=== PATIENT | male | born 1970 | race Caucasian/White ===

== ENCOUNTER 2020-12-19 18:11 | Inpatient (IN) | payer MEDICAID ==
[~2020-12-19] VITALS: Ht 188 cm; Wt 107.5 kg
[~2020-12-19 18:11] MED LIST: ALBUMIN HUMAN 25GM/100ML (25%) IV ONE; AMINOCAPROIC ACID 250 MG/ML 20ML VIAL ONE; CALCIUM CHLORIDE 1GM/10ML SYR IV ONE; HEPARIN 10,000 UNITS/ML VIAL ONE; HEPARIN 1000 UNITS/ML 10ML ONE; LIDOCAINE HCL 2% 5ML SYRINGE IV ONE; MAGNESIUM SULFATE 5GM/10ML VIAL IV ONE; MANNITOL 20% (20GM/100ML) BAG 500ML PREMIX IV ONE; PHENYLEPHRINE HCL 10 MG/ML 1ML (IV VIAL) IV ONE; POTASSIUM CHLORIDE 40MEQ/20ML INJ IV ONE; SODIUM BICARBONATE 8.4% 1 MEQ/ML 50ML SYR IV ONE
[2020-12-19] MEDS ORDERED: NICARDIPINE 100 MG in SODIUM CHLORIDE 0.9% 60 ML IV STA (18:22)
[2020-12-19 18:33] LABS: BASOPHILS % 0.6 % (0.0-2.0); EOSINOPHILS % 0.2 % (0.0-5.0); HEMOGLOBIN. 14.7 g/dL (14.0-18.0); LYMPHOCYTES % 7.8 % (20.0-50.0); MEAN CORPUSCULAR HEMOGLOBIN 30.6 pg (28.0-32.0); MEAN CORPUSCULAR VOLUME 91.3 fL (80.0-94.0); MEAN PLATELET VOLUME 7.5 fl (7.4-10.4); MONOCYTES % 8.5 % (2.0-8.0); NEUTROPHILS % 82.9 % (40.0-76.0); PLATELET 217 x1000/uL (130-400); RED BLOOD CELL COUNT 4.82 mill/uL (4.7-6.1); RED CELL DISTRIBUTION WIDTH 13.8 % (11.6-14.6)
[2020-12-19] MEDS ORDERED: ROCURONIUM BROMIDE 10MG/ML VIAL 5ML IV ONE ×2 (19:01→20:55)
[2020-12-19] MEDS ORDERED: HYDROMORPHONE HCL/PF 2MG/ML (OR) ONE (19:01)
[2020-12-19] MEDS ORDERED: DEXAMETHASONE 4MG/ML 1ML VIAL ONE (19:02)
[2020-12-19] MEDS ORDERED: PROPOFOL 200MG/20ML VIAL IV ONE (19:20)
[2020-12-19] MEDS ORDERED: AMINOCAPROIC ACID 5,000 MG in SODIUM CHLORIDE 0.9% 230 ML IV ONE (19:45)
[2020-12-19] MEDS ORDERED: DEL NIDO ELECTROLYTE-S(PH 7.4) 1,000 ML IV SCH ×2 (20:30)
[2020-12-19] MEDS ORDERED: AMINOCAPROIC ACID 250 MG/ML 20ML VIAL ONE (20:55)
[2020-12-19] MEDS ORDERED: HEPARIN 1000 UNITS/ML 10ML ONE (20:55)
[2020-12-19] MEDS ORDERED: CHLORHEXIDINE GLUCONATE 4% EXTERNAL USE TOP SCH (21:00)
[2020-12-19] MEDS ORDERED: CALCIUM CHLORIDE 1GM/10ML SYR IV ONE ×3 (21:11→22:40)
[2020-12-19] MEDS ORDERED: PROTAMINE SULFATE 10MG/ML VIAL 25ML IV ONE ×2 (21:15→21:55)
[2020-12-19] MEDS ORDERED: THROMBIN (BOVINE) 5000 UNITS/VIAL TOP ONE (21:53)
[2020-12-19] MEDS ORDERED: KETOROLAC 30MG/ML VIAL ONE (22:08)
[2020-12-19] MEDS ORDERED: SODIUM BICARBONATE 8.4% 1 MEQ/ML 50ML SYR IV ONE (22:19)
[2020-12-19] MEDS ORDERED: FUROSEMIDE 100MG/10ML VIAL ONE (22:25)
[2020-12-19] MEDS ORDERED: EPINEPHRINE 0.1MG/ML (1:10,000) 10ML SYR ONE (22:39)
[2020-12-19] MEDS ORDERED: GLYCOPYRROLATE 0.2 MG/ML 2ML VIAL ONE (22:44)
[2020-12-19] MEDS ORDERED: NEOSTIGMINE METHYLSULFATE 1MG/ML 10 ML VIAL ONE (22:44)
[2020-12-19] MEDS ORDERED: KETOROLAC 30MG/ML VIAL IV PRN (23:15)
[2020-12-19] MEDS ORDERED: ALBUMIN HUMAN 25GM/100ML (25%) IV PRN (23:15)
[2020-12-19] MEDS ORDERED: ACETAMINOPHEN 325MG TABLET PO PRN (23:15)
[2020-12-19] MEDS: MAGNESIUM HYDROXIDE 400MG/5ML 30ML UDC PO SCH (23:15)
[2020-12-19] MEDS ORDERED: MORPHINE SULFATE 2 MG/ML CPJ (NOT FOR IM USE) IV PRN (23:15)
[2020-12-19] MEDS ORDERED: ONDANSETRON HCL 4MG/2ML INJ IV PRN (23:15)
[2020-12-19] MEDS ORDERED: MAGNESIUM 1 G PREMIX 100 ML IV PRN (23:15)
[2020-12-19] MEDS ORDERED: NITROGLYCERIN 50MG PREMIX 250 ML IV SCH (23:15)
[2020-12-19] MEDS ORDERED: OXYCODONE HCL/ACETAMINOPHEN 5/325MG TABLET PO PRN ×2 (23:15)
[2020-12-19] MEDS ORDERED: ALBUMIN HUMAN 12.5G/250ML (5%) IV PRN (23:15)
[2020-12-19] MEDS ORDERED: DOPAMINE 400MG/250ML PREMIX 250 ML IV SCH (23:15)
[2020-12-19 23:25] VITALS: BP 146/72
[2020-12-19 23:26] LABS: BG BASE EXCESS -4.9 mmol/L (-2.0-2.0); BG CARBOXYHEMOGLOBIN 1.5 % (0.5-1.5); BG DEOXYHEMOGLOBIN 12.4 % (0.0-5.0); BG FRACTION INSPIRED OXYGEN 100; BG HCO3 ACT 21.9 mmol/L (22.0-26.0); BG METHEMOGLOBIN 0.4 % (0.0-1.5); BG OXYGEN SATURATION 87.4 % (92.0-98.5); BG OXYHEMOGLOBIN 85.7 % (94.0-97.0); BG PH 7.286 (7.350-7.450); BG PO2 58.1 mmHg (75.0-100.0); BG SAMPLE SITE ALINE; BG TOTAL HEMOGLOBIN 14.7 g/dL (12.0-18.0); BG VENT MODE MASK - NRB
[2020-12-19] MEDS ORDERED: KCL 10MEQ/50ML PREMIX 150 ML IV PRN (23:30)
[2020-12-19] MEDS ORDERED: KCL 10MEQ/50ML PREMIX 200 ML IV PRN (23:30)
[2020-12-19] MEDS ORDERED: SODIUM BICARBONATE 8.4% 1 MEQ/ML 50ML SYR IV SCH (23:30)
[2020-12-19] MEDS ORDERED: NALOXONE HCL 0.4 MG/ML 1ML VIAL IV PRN (23:30)
[2020-12-19] MEDS: INSULIN REGULAR (DRIP) 100 UNITS in SODIUM CHLORIDE 0.9% 100 ML IV SCH (23:30)
[2020-12-19 23:40] LABS: HEMATOCRIT. 40.4 % (42.0-52.0); HEMOGLOBIN. 13.5 g/dL (14.0-18.0); MEAN CORPUSCULAR HEMOGLOBIN 30.4 pg (28.0-32.0); MEAN CORPUSCULAR VOLUME 91.1 fL (80.0-94.0); MEAN PLATELET VOLUME 7.8 fl (7.4-10.4); PLATELET 172 x1000/uL (130-400); RED BLOOD CELL COUNT 4.44 mill/uL (4.7-6.1); RED CELL DISTRIBUTION WIDTH 13.9 % (11.6-14.6)
[2020-12-19] MEDS ORDERED: INSULIN REGULAR (DRIP) 100 UNITS in SODIUM CHLORIDE 0.9% 99 ML IV PRN (23:45)
[2020-12-19] MEDS ORDERED: DEXTROSE 50% WATER 50ML SYRINGE IV PRN ×2 (23:45)
[2020-12-20] VITALS (100 sets, daily range): BP systolic 101–176; BP diastolic 15–79
[2020-12-20] MEDS ORDERED: CEFAZOLIN 1000MG PREMIX 50 ML IV SCH
[2020-12-20] MEDS ORDERED: CALCIUM CHLORIDE 3,000 MG in DEXT 5% WATER 250 ML IV PRN
[2020-12-20] MEDS ORDERED: MAGNESIUM SULFATE 3 GM in DEXT 5% WATER 100 ML IV PRN
[2020-12-20] MEDS ORDERED: CALCIUM CHLORIDE 5,000 MG in DEXT 5% WATER 500 ML IV PRN
[2020-12-20] MEDS: IPRATROPIUM/ALBUTEROL 0.5-3(2.5)MG/3ML NEB HHN SCH ×6 (00:43→21:07)
[2020-12-20] MEDS: NICARDIPINE 50 MG in SODIUM CHLORIDE 0.9% 230 ML IV PRN ×2 (01:00→02:20)
[2020-12-20] MEDS: BLOOD SUGAR DIAGNOSTIC STRIP TEST SCH ×24 (01:00→23:00)
[2020-12-20] MEDS: DEXT 5%/0.45% NACL 1000ML 1,000 ML IV SCH (01:02)
[2020-12-20 01:03] LABS: BG BASE EXCESS -1.6 mmol/L (-2.0-2.0); BG CARBOXYHEMOGLOBIN 0.8 % (0.5-1.5); BG FRACTION INSPIRED OXYGEN 100; BG HCO3 ACT 25.1 mmol/L (22.0-26.0); BG METHEMOGLOBIN 0.3 % (0.0-1.5); BG OXYGEN SATURATION 88.9 % (92.0-98.5); BG OXYHEMOGLOBIN 87.9 % (94.0-97.0); BG PCO2 50.1 mmHg (35.0-45.0); BG PH 7.317 (7.350-7.450); BG PO2 59.3 mmHg (75.0-100.0); BG SAMPLE SITE ALINE; BG TOTAL HEMOGLOBIN 13.9 g/dL (12.0-18.0); BG VENT MODE MASK - NRB
[2020-12-20] MEDS ORDERED: AMINOCAPROIC ACID IV ONE (01:30)
[2020-12-20 02:07] LABS: PLATELET ESTIMATE NORMAL
[2020-12-20] MEDS: AMINOCAPROIC ACID 5,000 MG in SODIUM CHLORIDE 0.9% 230 ML IV SCH ×2 (02:36→07:00)
[2020-12-20 05:04] LABS: HEMATOCRIT. 38.1 % (42.0-52.0); HEMOGLOBIN. 12.9 g/dL (14.0-18.0); MEAN CORPUSCULAR HEMOGLOBIN 30.7 pg (28.0-32.0); MEAN CORPUSCULAR VOLUME 90.9 fL (80.0-94.0); MEAN PLATELET VOLUME 8.1 fl (7.4-10.4); PLATELET 172 x1000/uL (130-400); RED BLOOD CELL COUNT 4.19 mill/uL (4.7-6.1); RED CELL DISTRIBUTION WIDTH 13.9 % (11.6-14.6)
[2020-12-20 05:41] LABS: *AMPHETAMINES SCREEN URINE PRESUMTIVE POSITIVE (NEGATIVE); *BARBITURATES SCREEN URINE NEGATIVE (NEGATIVE); *BENZODIAZEPINES SCREEN URINE NEGATIVE (NEGATIVE); *COCAINE SCREEN URINE NEGATIVE (NEGATIVE)
[2020-12-20 05:42] LABS: CANNABINOID URINE SCREEN NEGATIVE (NEGATIVE); METHADONE URINE SCREEN NEGATIVE (NEGATIVE); OPIATES URINE SCREEN PRESUMTIVE POSITIVE (NEGATIVE); PHENCYCLIDINE URINE SCREEN NEGATIVE (NEGATIVE)
[2020-12-20 05:48] LABS: PLATELET ESTIMATE NORMAL
[2020-12-20] MEDS: MAGNESIUM HYDROXIDE 400MG/5ML 30ML UDC PO SCH ×4 (07:18→23:12)
[2020-12-20] MEDS ORDERED: CHLORHEXIDINE GLUCONATE 4% EXTERNAL USE TOP SCH (09:00)
[2020-12-20] MEDS: BACITRACIN 15GM TUBE TOP SCH ×2 (09:00→17:00)
[2020-12-20] MEDS ORDERED: FAMOTIDINE 20MG/2ML VIAL IV SCH (09:00)
[2020-12-20 09:26] LABS: HEMATOCRIT. 34.5 % (42.0-52.0); HEMOGLOBIN. 11.5 g/dL (14.0-18.0); MEAN CORPUSCULAR HEMOGLOBIN 30.5 pg (28.0-32.0); MEAN CORPUSCULAR VOLUME 91.5 fL (80.0-94.0); MEAN PLATELET VOLUME 8.4 fl (7.4-10.4); PLATELET 151 x1000/uL (130-400); RED BLOOD CELL COUNT 3.77 mill/uL (4.7-6.1); RED CELL DISTRIBUTION WIDTH 13.9 % (11.6-14.6)
[2020-12-20] MEDS: METOPROLOL TARTRATE 50MG TABLET PO SCH ×2 (09:33→20:23)
[2020-12-20] MEDS: DOCUSATE SODIUM 100MG CAPSULE PO SCH ×2 (09:33→17:14)
[2020-12-20] MEDS: MAGNESIUM/ALUMINUM HYDROXIDE/SIMETHICONE 30ML UDC NG SCH ×4 (09:36→15:36)
[2020-12-20] MEDS: AMLODIPINE 5MG TABLET PO SCH (10:15)
[2020-12-20 10:35] LABS: PLATELET ESTIMATE NORMAL
[2020-12-20] MEDS: KCL 10MEQ/50ML PREMIX 100 ML IV PRN ×2 (10:55→10:56)
[2020-12-20] MEDS: MAGNESIUM 2 G PREMIX 50 ML IV PRN (12:43)
[2020-12-20] MEDS: CEFAZOLIN 1000MG PREMIX 50 ML IV SCH (15:39)
[2020-12-20] MEDS ORDERED: FUROSEMIDE 40MG/4ML VIAL IVP NR (17:36)
[2020-12-21] VITALS (107 sets, daily range): BP systolic 83–168; BP diastolic 41–98
[2020-12-21] MEDS: CEFAZOLIN 1000MG PREMIX 50 ML IV SCH ×3 (00:13→15:48)
[2020-12-21] MEDS: INSULIN REGULAR (DRIP) 100 UNITS in SODIUM CHLORIDE 0.9% 100 ML IV SCH (00:14)
[2020-12-21] MEDS: DEXT 5%/0.45% NACL 1000ML 1,000 ML IV SCH (00:38)
[2020-12-21] MEDS: BLOOD SUGAR DIAGNOSTIC STRIP TEST SCH ×20 (01:00→21:00)
[2020-12-21] MEDS: IPRATROPIUM/ALBUTEROL 0.5-3(2.5)MG/3ML NEB HHN SCH ×6 (01:06→20:36)
[2020-12-21] MEDS: NICARDIPINE 50 MG in SODIUM CHLORIDE 0.9% 230 ML IV PRN (02:55)
[2020-12-21 04:48] LABS: HEMATOCRIT. 30.4 % (42.0-52.0); HEMOGLOBIN. 10.2 g/dL (14.0-18.0); MEAN CORPUSCULAR VOLUME 92.1 fL (80.0-94.0); MEAN PLATELET VOLUME 8.8 fl (7.4-10.4); PLATELET 148 x1000/uL (130-400); RED CELL DISTRIBUTION WIDTH 13.9 % (11.6-14.6)
[2020-12-21] MEDS: KCL 10MEQ/50ML PREMIX 100 ML IV PRN (06:45)
[2020-12-21] MEDS: MAGNESIUM 2 G PREMIX 50 ML IV PRN (06:49)
[2020-12-21] MEDS: DOCUSATE SODIUM 100MG CAPSULE PO SCH ×2 (08:25→17:22)
[2020-12-21] MEDS: FAMOTIDINE 20MG TABLET PO SCH (08:27)
[2020-12-21] MEDS: AMLODIPINE 5MG TABLET PO SCH ×2 (09:00→12:17)
[2020-12-21] MEDS: BACITRACIN 15GM TUBE TOP SCH (09:00)
[2020-12-21] MEDS: METOPROLOL TARTRATE 50MG TABLET PO SCH ×2 (09:00→21:21)
[2020-12-21] MEDS ORDERED: MAGNESIUM SULFATE 1G IN DEXT 5% 100ML PREMIX IV ONE (13:55)
[2020-12-21] MEDS ORDERED: POTASSIUM CHLORIDE 10MEQ IN WATER 50ML PREMIX IV ONE (13:55)
[2020-12-21 16:31] LABS: PLATELET ESTIMATE NORMAL
[2020-12-21] MEDS ORDERED: FUROSEMIDE 100MG/10ML VIAL IVP SCH (17:45)
[2020-12-21] MEDS: INSULIN LISPRO 100 UNITS/ML SUBCUT SCH ×2 (18:20→21:00)
[2020-12-21] MEDS ORDERED: MAGNESIUM 2 G PREMIX 50 ML IV ONE (18:30)
[2020-12-22] VITALS (20 sets, daily range): BP systolic 124–160; BP diastolic 73–96
[2020-12-22] MEDS: IPRATROPIUM/ALBUTEROL 0.5-3(2.5)MG/3ML NEB HHN SCH ×6 (00:30→20:22)
[2020-12-22] MEDS: DEXT 5%/0.45% NACL 1000ML 1,000 ML IV SCH (00:50)
[2020-12-22] MEDS: CEFAZOLIN 1000MG PREMIX 50 ML IV SCH ×3 (00:54→17:09)
[2020-12-22 06:43] LABS: BASOPHILS % 0.2 % (0.0-2.0); EOSINOPHILS % 0.1 % (0.0-5.0); HEMATOCRIT. 30.9 % (42.0-52.0); HEMOGLOBIN. 10.5 g/dL (14.0-18.0); LYMPHOCYTES % 9.4 % (20.0-50.0); MEAN CORPUSCULAR HEMOGLOBIN 31.2 pg (28.0-32.0); MEAN CORPUSCULAR VOLUME 91.4 fL (80.0-94.0); MEAN PLATELET VOLUME 9.1 fl (7.4-10.4); MONOCYTES % 10.5 % (2.0-8.0); NEUTROPHILS % 79.8 % (40.0-76.0); PLATELET 150 x1000/uL (130-400); RED BLOOD CELL COUNT 3.37 mill/uL (4.7-6.1); RED CELL DISTRIBUTION WIDTH 13.8 % (11.6-14.6)
[2020-12-22] MEDS: BLOOD SUGAR DIAGNOSTIC STRIP TEST SCH ×4 (07:07→21:43)
[2020-12-22] MEDS: INSULIN LISPRO 100 UNITS/ML SUBCUT SCH ×4 (07:20→21:00)
[2020-12-22] MEDS: METOPROLOL TARTRATE 50MG TABLET PO SCH ×2 (08:41→21:51)
[2020-12-22] MEDS: FAMOTIDINE 20MG TABLET PO SCH (08:41)
[2020-12-22] MEDS: AMLODIPINE 5MG TABLET PO SCH (08:41)
[2020-12-22] MEDS: DOCUSATE SODIUM 100MG CAPSULE PO SCH ×2 (08:41→17:08)
[2020-12-22] MEDS: MAGNESIUM 2 G PREMIX 50 ML IV PRN (10:04)
[2020-12-22] MEDS: KCL 10MEQ/50ML PREMIX 100 ML IV PRN (12:20)
[2020-12-22] MEDS ORDERED: FUROSEMIDE 100MG/10ML VIAL IVP NR (13:00)
[2020-12-22] MEDS: MINERAL OIL 30ML BOTTLE PO SCH ×2 (14:05→17:08)
[2020-12-22] MEDS: MAGNESIUM 4 G PREMIX 100 ML IV NR ×2 (14:26→15:00)
[2020-12-22] MEDS ORDERED: AMLODIPINE 5MG TABLET PO NR (15:00)
[2020-12-22] MEDS: HYDRALAZINE HCL 25MG TABLET PO SCH (21:52)
[2020-12-23] VITALS (13 sets, daily range): BP systolic 95–158; BP diastolic 56–85
[2020-12-23] MEDS: IPRATROPIUM/ALBUTEROL 0.5-3(2.5)MG/3ML NEB HHN SCH ×6 (00:24→20:00)
[2020-12-23] MEDS: CEFAZOLIN 1000MG PREMIX 50 ML IV SCH ×4 (00:36→23:37)
[2020-12-23] MEDS: DEXT 5%/0.45% NACL 1000ML 1,000 ML IV SCH (00:37)
[2020-12-23] MEDS: BLOOD SUGAR DIAGNOSTIC STRIP TEST SCH ×2 (06:43→12:02)
[2020-12-23] MEDS: HYDRALAZINE HCL 25MG TABLET PO SCH ×3 (06:50→22:01)
[2020-12-23 06:52] LABS: BASOPHILS % 0.4 % (0.0-2.0); EOSINOPHILS % 0.7 % (0.0-5.0); HEMATOCRIT. 31.8 % (42.0-52.0); HEMOGLOBIN. 10.9 g/dL (14.0-18.0); LYMPHOCYTES % 12.5 % (20.0-50.0); MEAN CORPUSCULAR HEMOGLOBIN 31.2 pg (28.0-32.0); MEAN CORPUSCULAR VOLUME 91.1 fL (80.0-94.0); MEAN PLATELET VOLUME 8.7 fl (7.4-10.4); MONOCYTES % 11.9 % (2.0-8.0); NEUTROPHILS % 74.5 % (40.0-76.0); PLATELET 175 x1000/uL (130-400); RED BLOOD CELL COUNT 3.49 mill/uL (4.7-6.1); RED CELL DISTRIBUTION WIDTH 13.3 % (11.6-14.6)
[2020-12-23 07:03] LABS: PARTIAL THROMBOPLASTIN TIME 30.5 sec (23.4-31.0); PROTHROMBIN TIME 10.6 sec (9.6-11.0)
[2020-12-23 07:05] LABS: CHLORIDE 98 mEq/L (98-107)
[2020-12-23] MEDS: INSULIN LISPRO 100 UNITS/ML SUBCUT SCH (07:20)
[2020-12-23] MEDS: MINERAL OIL 30ML BOTTLE PO SCH ×2 (08:44→16:54)
[2020-12-23] MEDS: DOCUSATE SODIUM 100MG CAPSULE PO SCH ×2 (08:44→16:54)
[2020-12-23] MEDS ORDERED: FUROSEMIDE 100MG/10ML VIAL IVP SCH (08:45)
[2020-12-23] MEDS: METOPROLOL TARTRATE 50MG TABLET PO SCH ×2 (08:45→20:26)
[2020-12-23] MEDS: FAMOTIDINE 20MG TABLET PO SCH (08:45)
[2020-12-23] MEDS: AMLODIPINE 5MG TABLET PO SCH (08:45)
[2020-12-23] MEDS ORDERED: MAGNESIUM 4 G PREMIX 100 ML IV SCH (09:00)
[2020-12-23 10:05] LABS: BG BASE EXCESS 7.9 mmol/L (-2.0-2.0); BG CARBOXYHEMOGLOBIN 0.2 % (0.5-1.5); BG DEOXYHEMOGLOBIN 9.6 % (0.0-5.0); BG FRACTION INSPIRED OXYGEN 21; BG HCO3 ACT 31.4 mmol/L (22.0-26.0); BG METHEMOGLOBIN 0.2 % (0.0-1.5); BG OXYGEN SATURATION 90.4 % (92.0-98.5); BG PCO2 39.8 mmHg (35.0-45.0); BG PH 7.515 (7.350-7.450); BG PO2 56.3 mmHg (75.0-100.0); BG SAMPLE SITE LEFT BRACHIAL; BG TOTAL HEMOGLOBIN 12.2 g/dL (12.0-18.0); BG VENT MODE ROOM AIR
[2020-12-24] VITALS (11 sets, daily range): BP systolic 106–142; BP diastolic 53–81
[2020-12-24] MEDS: IPRATROPIUM/ALBUTEROL 0.5-3(2.5)MG/3ML NEB HHN SCH ×6 (04:00→21:12)
[2020-12-24] MEDS: HYDRALAZINE HCL 25MG TABLET PO SCH ×3 (05:43→21:06)
[2020-12-24] MEDS: METOPROLOL TARTRATE 50MG TABLET PO SCH ×2 (08:58→21:07)
[2020-12-24] MEDS: MINERAL OIL 30ML BOTTLE PO SCH ×2 (08:58→17:08)
[2020-12-24] MEDS: FAMOTIDINE 20MG TABLET PO SCH (08:58)
[2020-12-24] MEDS: CEFAZOLIN 1000MG PREMIX 50 ML IV SCH ×2 (08:58→17:07)
[2020-12-24] MEDS: AMLODIPINE 5MG TABLET PO SCH (08:59)
[2020-12-24] MEDS: DOCUSATE SODIUM 100MG CAPSULE PO SCH ×2 (09:00→17:08)
[2020-12-24] MEDS ORDERED: FUROSEMIDE 100MG/10ML VIAL IVP NR (12:14)
[2020-12-24] MEDS: POTASSIUM CHLORIDE 20MEQ TABLET SR PO SCH (17:08)
[2020-12-25] VITALS (8 sets, daily range): BP systolic 101–124; BP diastolic 45–80
[2020-12-25] MEDS: CEFAZOLIN 1000MG PREMIX 50 ML IV SCH (00:19)
[2020-12-25] MEDS: IPRATROPIUM/ALBUTEROL 0.5-3(2.5)MG/3ML NEB HHN SCH ×3 (01:27→10:18)
[2020-12-25 06:05] LABS: HEMATOCRIT 32.2 % (42.0-52.0); HEMOGLOBIN 10.9 g/dL (14.0-18.0); MEAN CORPUSCULAR HEMOGLOBIN 31.3 pg (28.0-32.0); MEAN CORPUSCULAR VOLUME 92.4 fL (80.0-94.0); PLATELET 218 x1000/uL (130-400); RED BLOOD CELL COUNT 3.49 mill/uL (4.7-6.1); RED CELL DISTRIBUTION WIDTH 13.2 % (11.6-14.6)
[2020-12-25 06:14] LABS: CHLORIDE 96 mEq/L (98-107)
[2020-12-25] MEDS: HYDRALAZINE HCL 25MG TABLET PO SCH (06:29)
[2020-12-25] MEDS: FAMOTIDINE 20MG TABLET PO SCH (08:38)
[2020-12-25] MEDS: POTASSIUM CHLORIDE 20MEQ TABLET SR PO SCH (08:38)
[2020-12-25] MEDS: DOCUSATE SODIUM 100MG CAPSULE PO SCH (08:38)
[2020-12-25] MEDS: MINERAL OIL 30ML BOTTLE PO SCH (08:39)
[2020-12-25] MEDS: AMLODIPINE 5MG TABLET PO SCH (08:39)
[2020-12-25] MEDS: METOPROLOL TARTRATE 50MG TABLET PO SCH (08:39)
[2020-12-25] MEDS ORDERED: FUROSEMIDE 40MG TABLET PO SCH (09:00)
== END 2020-12-25 13:39 | disposition home or self-care (01) | DRG 167 ==
LOC: ER 18:11 → CVICU 18:51 → EDBEDREQSVC 18:54 → EDBEDREQ 18:54 → EDBEDREQTM 18:54 → CANBEDREQ 19:14 → ENRESERV 19:14 → 3WST 12-22 06:36
PROVIDERS: ADMIT Internal Medicine; ATTEND Internal Medicine
PROC: 02RX0JZ Replacement of Thoracic Aorta, Ascending/Arch with Synthetic Substitute, Open Approach (ICD-10-PCS; principal; 2020-12-19)
PROC: 5A1221Z Performance of Cardiac Output, Continuous (ICD-10-PCS; 2020-12-19)
PROC: B24BZZ4 Ultrasonography of Heart with Aorta, Transesophageal (ICD-10-PCS; 2020-12-19)
PROC: 3E083GC Introduction of Other Therapeutic Substance into Heart, Percutaneous Approach (ICD-10-PCS; 2020-12-19)
DX: I71.01 Dissection of thoracic aorta (principal); N17.9 Acute kidney failure, unspecified; D68.9 Coagulation defect, unspecified; D72.829 Elevated white blood cell count, unspecified; J98.11 Atelectasis; I10 Essential (primary) hypertension; Z20.822 Contact with and (suspected) exposure to COVID-19; F15.10 Other stimulant abuse, uncomplicated; R09.02 Hypoxemia; Z72.0 Tobacco use
CPT/HCPCS: 36415; 36600; 71045; 80048; 80305; 82375; 82805; 82962; 83735; 85025; 85027; 85347; 86900; 86920; 87426; 88304; 93005; 93306; 94618; 94640; 97110; 97116; 97162; 97167; 97530; 99291; C1725; C1729; C1751; C1758; C1769; J0690; J1100; J1170; J1644; J1815; J1885; J1940; J2370; J2704; J2710; J2720; J3475; J3480; J3490; J7050; L3908; L8670; P9041; P9047